=== PATIENT | female | born 1990 | race Caucasian/White ===

== ENCOUNTER 2018-05-25 13:36 | Emergency (ER) | payer BC ==
[~2018-05-25] VITALS: Ht 162.6 cm; Wt 84.4 kg
[2018-05-25 13:48] VITALS: BP 115/83
[2018-05-25] MEDS ORDERED: METF500T17 PO (14:03)
== END 2018-05-25 14:51 | disposition home or self-care (01) ==
LOC: ED 14:39
DX: S39.012A Strain of muscle, fascia and tendon of lower back, initial encounter (principal); X58.XXXA Exposure to other specified factors, initial encounter; Y93.89 Activity, other specified; Y92.89 Other specified places as the place of occurrence of the external cause; Y99.8 Other external cause status
CPT/HCPCS: 99283